=== PATIENT | female | born 1965 | race Caucasian/White ===

== ENCOUNTER → 2016-08-02 | Outpatient (CLI) | payer OTHER ==
[~2016-08-02] MED LIST: CHOL1TAB12 PO; CITA10TA8 PO; MONT1TAB3 PO; NSNN50 NAE; OMEP40CA41 PO; OYST500T47 PO; RANI150T3 PO
--- NOTE | 2016-08-03 12:25 | MAMMOGRAPHY REPORT ---
BILATERAL DIGITAL SCREENING MAMMOGRAM TOMOSYNTHESIS WITH CAD: 08/02/2016 CLINICAL HISTORY: Routine screening. Patient has no complaints. TECHNIQUE: Breast tomosynthesis in addition to standard 2D mammography was performed. Current study was also evaluated with a Computer Aided Detection (CAD) system. COMPARISON: Comparison is made to exams dated: 10/21/2015 mammogram, 10/14/2015 mammogram, 07/29/2015 mammogram, and 08/22/2014 mammogram - [facility]. BREAST COMPOSITION: There are scattered areas of fibroglandular density in both breasts. FINDINGS: There is a ribbon shaped metallic biopsy marker in the 12:00 right breast. The biopsied m ass has now calcified, concordant with the biopsy-proven fat necrosis. No new suspicious mass, arch itectural distortion or cluster of microcalcifications is seen. IMPRESSION: ACR BI-RADS CATEGORY 1: NEGATIVE There is no mammographic evidence of malignancy. A 1 year screening mammogram is recommended. The p atient will receive written notification of the results. Approximately 10% of breast cancers are not detected with mammography. A negative mammographic repor t should not delay biopsy if a clinically suggestive mass is present. Amanda Ott M.D. ay/:08/02/2016 21:57:08 Outpatient Admitting Clerk: Azul CANO(Nazanin)(Dawna)(KEEGAN), [facility] letter sent: Normal 1/2 BI-RADS Code: ACR BI-RADS Category 1: Negative
== END | disposition home or self-care (01) ==
LOC: C.MAMM 13:38
PROVIDERS: ATTEND Family Medicine
DX: Z12.31 Encounter for screening mammogram for malignant neoplasm of breast (principal)

== ENCOUNTER → 2016-11-03 | Outpatient (CLI) | payer OTHER ==
[2016-11-03 11:13] LABS: ESTIMATED AVERAGE GLUCOSE 120 mg/dl; HA1C FLAG Normal (Normal)
[2016-11-03 11:27] LABS: ALKALINE PHOSPHATASE 158 U/L (45-117); ALT/SGPT 30 U/L (12-78); AST/SGOT 18 U/L (15-37); BLOOD UREA NITROGEN 16 mg/dl (7-18); BUN/CREATININE RATIO 18.6 (10-20); CALCIUM 9.2 mg/dl (8.5-10.1); CARBON DIOXIDE 26 mmol/L (21-32); CHLORIDE 103 mmol/L (98-107); CHOLESTEROL 209 mg/dl (0-200); CHOLESTEROL/HDL RATIO 3.8; CREATININE 0.85 mg/dl (0.60-1.20); GLUCOSE 101 mg/dl (70-99); HDL CHOLESTEROL 55 mg/dl; LDL CHOLESTEROL CALCULATED 139 mg/dl; POTASSIUM 4.1 mmol/L (3.5-5.1); SODIUM 136 mmol/L (136-145); TRIGLYCERIDES 73 mg/dl (0-150); VERY LOW DENSITY LIPOPROT CALC 15 mg/dl
== END | disposition home or self-care (01) ==
LOC: C.LABBC 08:32
PROVIDERS: ATTEND Family Medicine
DX: F41.8 Other specified anxiety disorders (principal); E78.00 Pure hypercholesterolemia, unspecified; I10 Essential (primary) hypertension; R73.03 Prediabetes

== ENCOUNTER → 2017-04-22 | Outpatient (CLI) | payer OTHER ==
[2017-04-22 10:53] LABS: BASO % 0.2 %; BASO ABS # 0.02 K/uL (0-0.2); COMPLETE YES; EOS % 5.4 %; HEMATOCRIT 41.3 % (37-47); IG% 0.2 %; LYMPH % 34.9 %; LYMPH ABS # 3.02 K/uL (1.2-3.4); MEAN CELL VOLUME 93.2 fL (80-100); MEAN CORPUSCULAR HEMOGLOBIN 31.6 pg (25-34); MEAN CORPUSCULAR HGB CONC 33.9 g/dl (32-36); MEAN PLATELET VOLUME 9.1 fL (7.4-10.4); MONO % 8.9 %; NEUT % 50.4 %; PLATELET COUNT 346 K/uL (130-400); RED BLOOD COUNT 4.43 M/uL (4.2-5.4); WHITE BLOOD COUNT 8.65 K/uL (4.8-10.8)
[2017-04-22 11:27] LABS: BLOOD UREA NITROGEN 18 mg/dl (7-18); BUN/CREATININE RATIO 20.7 (10-20); CALCIUM 9.5 mg/dl (8.5-10.1); CARBON DIOXIDE 27 mmol/L (21-32); CHLORIDE 99 mmol/L (98-107); CHOLESTEROL 216 mg/dl (0-200); CREATININE 0.89 mg/dl (0.60-1.20); GLUCOSE 96 mg/dl (70-99); MAGNESIUM 2.3 mg/dl (1.8-2.4); SODIUM 134 mmol/L (136-145)
[2017-04-22 11:31] LABS: ALKALINE PHOSPHATASE 142 U/L (45-117); ALT/SGPT 26 U/L (12-78); AST/SGOT 18 U/L (15-37); CHOLESTEROL/HDL RATIO 3.1; HDL CHOLESTEROL 70 mg/dl; LDL CHOLESTEROL CALCULATED 131 mg/dl; TRIGLYCERIDES 77 mg/dl (0-150); VERY LOW DENSITY LIPOPROT CALC 15 mg/dl
[2017-04-22 11:40] LABS: ESTIMATED AVERAGE GLUCOSE 117 mg/dl; HA1C FLAG Normal (Normal)
[2017-04-26 04:29] LABS: ALK PHOS ISO-INTESTINE 0 % (1-24); ALK PHOS ISO-LIVER 60 % (25-69); ALK PHOS ISO-PLACENTAL 0 % (<=0); ALK PHOS MACROHEPATIC 0 % (<=0); ALP (ALK P'TASE) 123 U/L (33-130)
== END | disposition home or self-care (01) ==
LOC: C.LABBC 08:22
PROVIDERS: ATTEND Nurse Practitioner Family
DX: M85.80 Other specified disorders of bone density and structure, unspecified site (principal); K21.9 Gastro-esophageal reflux disease without esophagitis; E78.00 Pure hypercholesterolemia, unspecified; I10 Essential (primary) hypertension; K58.0 Irritable bowel syndrome with diarrhea; R73.03 Prediabetes; R74.8 Abnormal levels of other serum enzymes

== ENCOUNTER → 2017-08-04 | Outpatient (CLI) | payer OTHER ==
--- NOTE | 2017-08-04 15:19 | MAMMOGRAPHY REPORT ---
BILATERAL DIGITAL SCREENING MAMMOGRAM TOMOSYNTHESIS WITH CAD: 08/04/2017 CLINICAL HISTORY: Routine screening. Patient has no complaints. TECHNIQUE: Breast tomosynthesis in addition to standard 2D mammography was performed. Current study was also evaluated with a Computer Aided Detection (CAD) system. COMPARISON: Comparison is made to exams dated: 08/02/2016 mammogram, 07/29/2015 mammogram, 08/22/2014 m ammogram, 08/21/2013 mammogram, 08/16/2012 mammogram, and 08/16/2011 mammogram - [facility] enter. BREAST COMPOSITION: There are scattered areas of fibroglandular density in both breasts. FINDINGS: No suspicious masses, calcifications, or areas of architectural distortion are noted in ei ther breast. There has been no significant interval change compared to prior exams. Coarse benign dy strophic calcifications are seen within the right breast related to fat necrosis. A biopsy marker cl ip is again noted within the right upper outer quadrant. IMPRESSION: ACR BI-RADS CATEGORY 2: BENIGN There is no mammographic evidence of malignancy. A 1 year screening mammogram is recommended. The pa tient will receive written notification of the results. Approximately 10% of breast cancers are not detected with mammography. A negative mammographic report should not delay biopsy if a clinically suggestive mass is present. Chrissy Salas M.D. /:08/04/2017 13:20:31 Supervisor [employer]phalt P[employer]: Leah SRINIVASAN)(Dawna), [facility] letter sent: Normal 1/2 BI-RADS Code: ACR BI-RADS Category 2: Benign
== END | disposition home or self-care (01) ==
LOC: C.MAMM 08:32
PROVIDERS: ATTEND Nurse Practitioner Family
DX: Z12.31 Encounter for screening mammogram for malignant neoplasm of breast (principal)